=== PATIENT | male | born 1955 | race Caucasian/White ===

== ENCOUNTER 2017-03-18 09:29 | Emergency (ER) | payer OTHER ==
[2017-03-18 10:31] VITALS: BP 161/88
--- NOTE | 2017-03-18 10:31 | UC ---
Hypertension HPI - HPI Summary HPI Summary: Patient presents to the with a request for a HTN check. He states he was seen recently for a GI bleed and developed low Hbg. After which, he was ordered a colonoscopy which he completed yesterday. He states he had a lot of diffuse gas in the belly s/p procedure and had a blood pressure of 190/100. His physician told him to have the BP checked again today to assure it was just d/t the procedure. He is currently taking Pantoprazole for the GI upset. Denies other medications and is otherwise healthy. Denies VAZQUEZ, dizziness, light- headedness, urinary symptoms or abdominal pain. - History of Current Complaint Chief Complaint: UCGeneralIllness Stated Complaint: BLOOD PRESSURE CHECK Time Seen by Provider: 03/18/17 09:58 Hx Obtained From: Patient Onset/Duration: Sudden Onset Associated Signs And Symptoms: Positive: Negative. Negative: Chest Pain, Recent Stress, Headaches, Numbness, Weakness, Dizziness - Risk Factors Cardiac Risk Factors: Hypertension - Allergies/Home Medications Allergies/Adverse Reactions: Allergies Allergy/AdvReac Type Severity Reaction Status Date / Time No Known Allergies Allergy Verified 03/18/17 10:06 Home Medications: Home Medications Pantoprazole TAB (NF) [Protonix TAB (NF)] 40 mg PO DAILY 03/18/17 [History Confirmed 03/18/17] PMH/Surg Hx/FS Hx/Imm Hx Previously Healthy: Yes - Surgical History Surgical History: Yes Surgery Procedure, Year, and Place: Colonoscopy 03/17/17 - Social History Occupation: Employed Part-time Lives: With Family Alcohol Use: None Substance Use Type: None Smoking Status (MU): Never Smoked Tobacco - Immunization History Most Recent Influenza Vaccination: 2017 Review of Systems Constitutional: Negative Skin: Negative Respiratory: Negative Cardiovascular: Negative Genitourinary: Negative Motor: Negative Neurovascular: Negative Musculoskeletal: Negative Neurological: Negative Is Patient Immunocompromised?: No All Other Systems Reviewed And Are Negative: Yes Physical Exam Triage Information Reviewed: Yes Appearance: Well-Appearing, Well-Nourished Vital Signs: Initial Vital Signs Temp 98 F 03/18/17 10:06 Pulse 77 03/18/17 10:06 Resp 16 03/18/17 10:06 BP 161/88 03/18/17 10:06 Pulse Ox 100 03/18/17 10:06 Vital Signs Reviewed: Yes Eye Exam: Normal Eyes: Positive: Conjunctiva Clear Neck exam: Normal Neck: Positive: Supple, No Lymphadenopathy Respiratory Exam: Normal Respiratory: Positive: Chest non-tender, Lungs clear Cardiovascular Exam: Normal Cardiovascular: Positive: RRR Musculoskeletal Exam: Normal Musculoskeletal: Positive: Strength Intact Neurological Exam: Normal Neurological: Positive: Alert Psychological Exam: Normal Psychological: Positive: Normal Response To Family Skin Exam: Normal Hypertension Course/Dx - Course Course Of Treatment: Patient is evaluated for HTN. He appears well and is not diaphoretic. Colonoscopy yesterday and today for a recheck. He is given PCP referrals. Today BP 161/88. Denies VAZQUEZ, dizziness, urinary symptoms, abdominal pain or visual disturbances suggesting hypertensive urgency/emergency. High end of normal - will need recheck soon and have PCP evaluate to begin medications. - Differential Dx/Diagnosis Differential Diagnosis/HQI PQRI: Hypertension, Hypertensive Crisis, Hypertensive Urgency Provider Diagnoses: Hypertension Discharge - Discharge Plan Condition: Stable Disposition: HOME Patient Education Materials: Hypertension (ED) Referrals: No Primary Care Phys,NOPCP [Primary Care Provider] - Additional Instructions: Your blood pressure today was high, but you are not in hypertensive crisis You will likely need this to be checked again by your PCP and at that time, may be placed on medication Follow up on the as discussed If you develop light-headedness or dizziness - go to the ED
== END 2017-03-18 10:35 | disposition home or self-care (01) ==
LOC: UCCORT 09:29
DX: I10 Essential (primary) hypertension (principal)
CPT/HCPCS: 99211; G0463